=== PATIENT | male | born 1955 | race African-American/Black ===

== ENCOUNTER 2016-04-26 16:00 | Emergency (ER) | payer SELFPAY ==
[~2016-04-26] VITALS: Wt 75.0 kg
[~2016-04-26 16:00] MED LIST: ENAL2.5T PO; FER325 PO; LEVO500T72 ORAL; METF500T PO; SAN30GM TOP
--- NOTE | 2016-04-26 16:25 | ERD ---
ER Documentation Chief Complaint Date/Time DATE: 04/26/16 TIME: 16:23 Chief Complaint picc line removal HPI This is a 6-year-old male who is here for PICC line removal as he has completed his intravenous antibiotic therapy for an infected right fifth toe. He has no other complaints no shortness of breath chest pain no redness or pus discharge at the PICC line insertion ROS All systems reviewed and are negative except as per history of present illness. Medications Home Meds Active Scripts Collagenase* (Santyl*) 30 Gm Oint..gm., 1 APPLIC TOP DAILY for 14 Days Prov:MERNA RIOS NP 03/12/16 Ferrous Sulfate* (Ferrous Sulfate*) 325 Mg Tabec, 325 MG PO BID for 30 Days, TAB Prov:MERNA RIOS NP 03/12/16 Enalapril Maleate* (Enalapril Maleate*) 2.5 Mg Tablet, 2.5 MG PO DAILY for 30 Days, TAB Prov:MERNA RIOS NP 03/12/16 Metformin Hcl (Glucophage) 500 Mg Tablet, 1000 MG PO BID WITH MEALS for 30 Days , TAB Prov:MERNA RIOS NP 03/12/16 Levofloxacin* (Levaquin*) 500 Mg Tablet, 500 MG ORAL DAILY@06 for 48 Days, TAB Prov:MERNA RIOS NP 03/12/16 Allergies Allergies: Coded Allergies: No Known Allergy (Unverified , 03/06/16) PMhx/Soc History of Surgery: No Anesthesia Reaction: No (unknown ) Hx Neurological Disorder: Yes Hx Respiratory Disorders: No Hx Cardiac Disorders: Yes (htn) Hx Psychiatric Problems: Yes (anxiety) Hx Miscellaneous Medical Probl: No Hx Alcohol Use: Yes (beer, 03/05, 3 beers) Hx Substance Use: Yes (beer, 03/05) Hx Tobacco Use: Yes FmHx Family History: No coronary disease Physical Exam Vitals Vital Signs Date Time Temp Pulse Resp B/P Pulse Ox O2 Delivery O2 Flow Rate FiO2 04/26/16 16:02 97.9 79 20 182/86 98 Physical Exam Const: Well-developed, well-nourished Head: Atraumatic, normocephalic Eyes: Normal Conjunctiva, PERRLA, EOMI, normal sclera, no nystagmus ENT: Normal External Ears, Nose and Mouth, moist mucus membranes. Neck: Full range of motion. No meningismus, no lymphadenopathy. Resp: Clear to auscultation bilaterally, no wheezing, rhonchi, rales Cardio: Regular rate and rhythm, no murmurs, S1 S2 present Abd: Soft, non tender x 4, non distended. Normal bowel sounds, no guarding or rebound, no pulsitile abdominal masses or bruits Skin: No petechiae or rashes, no ecchymosis , no maculopapular rash Back: No midline or flank tenderness Ext: No cyanosis, or edema, FROM x 4, normal inspection, neurovascularly intact x 4, there is a left upper extremity PICC line intact no signs of erythema or cellulitis or infection Neur: Awake and alert, STR 5/5 x 4, sensation intact x 4, no focal findings, cerebellum intact Psych: Normal Mood and Affect Procedures/MDM Left upper extremity PICC line removed by me. PICC line removed without difficulty catheter tip is intact Departure Diagnosis: Primary Impression: PIC line (peripherally inserted central catheter) removal Condition: Stable Patient Instructions: Picc Line Care GIBRAN NUÑEZ DO Apr 26, 2016 16:25
== END 2016-04-26 16:49 | disposition home or self-care (01) ==
LOC: E/R 16:00
DX: Z45.2 Encounter for adjustment and management of vascular access device (principal); I10 Essential (primary) hypertension; E11.9 Type 2 diabetes mellitus without complications; Z79.84 Long term (current) use of oral hypoglycemic drugs; Z87.891 Personal history of nicotine dependence
CPT/HCPCS: 99282

== ENCOUNTER 2016-10-08 10:14 | Emergency (ER) | payer MEDICAID ==
[~2016-10-08] VITALS: Ht 172.7 cm; Wt 70.0 kg
[2016-10-08 10:18] VITALS: Ht 172.7 cm; Wt 70.0 kg
[2016-10-08] MEDS ORDERED: SOD CHLORIDE 0.9% 1,000 ML IV STA (10:26)
[2016-10-08] MEDS ORDERED: ONDANSETRON 4 MG INJ IV STA (10:26)
[2016-10-08 10:50] LABS: MODE ROOM AIR; MetHgb Venous 0.2 %; Sample Type Blood venous; Venous COHb 0.5 %; Venous Fraction OxyHgb 88.1 %; Venous Total Hemglobin 14.4 g/dl
[2016-10-08 11:00] LABS: ADD SCAN DIFF NO
[2016-10-08 11:08] LABS: ABNORMAL IP MESSAGE 1; BASOPHILS % 0.1 % (0.0-2.0); EOSINOPHILS # 0.1 10^3/ul (0.0-0.5); EOSINOPHILS % 1.2 % (0.0-7.0); HEMATOCRIT 39.3 % (42.0-52.0); LYMPHOCYTES # 0.4 10^3/ul (0.8-2.9); LYMPHOCYTES % 3.4 % (15.0-51.0); MEAN CORPUSCULAR HEMOGLOBIN 30.9 pg (29.0-33.0); MEAN CORPUSCULAR HGB CONC 33.1 g/dl (32.0-37.0); MEAN CORPUSCULAR VOLUME 93.3 fl (82.0-101.0); MEAN PLATELET VOLUME 10.7 fl (7.4-10.4); MONOCYTE # 0.4 10^3/ul (0.3-0.9); MONOCYTES % 3.4 % (0.0-11.0); NEUTROPHIL # 9.8 10^3/ul (1.6-7.5); NEUTROPHILS % 91.5 % (39.0-77.0); PLATELET COUNT 223 10^3/UL (140-415); RED BLOOD COUNT 4.21 10^6/ul (4.70-6.10); RED CELL DISTRIBUTION WIDTH 13.2 % (11.5-14.5); WHITE BLOOD COUNT 10.7 10^3/ul (4.8-10.8)
[2016-10-08 11:26] LABS: CALCIUM 8.9 mg/dl (8.4-10.2); CREATININE 0.75 mg/dl (0.61-1.24); POTASSIUM 3.5 mmol/L (3.5-5.1)
[2016-10-08 11:28] LABS: ADD UMIC YES; UR ASCORBIC ACID NEGATIVE (NEGATIVE); UR BACTERIA FEW /HPF (NONE SEEN); UR BILIRUBIN (Dip) NEGATIVE (NEGATIVE); UR BLOOD (Dip) 1+ mg/dL (NEGATIVE); UR CLARITY CLEAR (CLEAR); UR COLOR YELLOW (YELLOW); UR GLUCOSE (Dip) NEGATIVE (NEGATIVE); UR KETONES (Dip) TRACE mg/dL (NEGATIVE); UR LEUKOCYTE ESTERASE (Dip) NEGATIVE Leu/ul (NEGATIVE); UR MUCUS FEW /HPF (NONE SEEN); UR NITRITE (Dip) NEGATIVE (NEGATIVE); UR RBC 0 /HPF (0-5); UR SPECIFIC GRAVITY (Dip) 1.026 (1.003-1.030); UR TOTAL PROTEIN (Dip) 1+ mg/dl (NEGATIVE); UR UROBILINOGEN (Dip) NEGATIVE (NEGATIVE)
[2016-10-08] MEDS ORDERED: MTF1000T PO (11:35)
[2016-10-08 11:39] VITALS: BP 173/100; PULSE 75; RESP 16
--- NOTE | 2016-10-08 11:41 | ERD ---
ER Documentation Chief Complaint Date/Time DATE: 10/08/16 TIME: 11:38 Chief Complaint Complains of increasing blood sugar levels HPI 61-year-old male [id number] diabetic who states that he has been trying to space out his metformin because he is running out of medication. He notes that his blood sugars have been in the 200s. He does describe some polyuria but no polydipsia or polyphagia. One episode of mild nausea but no vomiting, 1 episode of loose stools. No chest pain or shortness of breath or fevers or chills. No abdominal pain. ROS All systems reviewed and are negative except as per history of present illness. Medications Home Meds Active Scripts Metformin* (Glucophage*) 1,000 Mg Tablet, 1000 MG PO BID for 30 Days, #60 TAB Prov:ERICK COONEY MD 10/08/16 Metformin Hcl (Glucophage) 500 Mg Tablet, 1000 MG PO BID WITH MEALS for 30 Days , TAB Prov:MERNA RIOS NP 03/12/16 Discontinued Scripts Collagenase* (Santyl*) 30 Gm Oint..gm., 1 APPLIC TOP DAILY for 14 Days Prov:MERNA RIOS NP 03/12/16 Ferrous Sulfate* (Ferrous Sulfate*) 325 Mg Tabec, 325 MG PO BID for 30 Days, TAB Prov:MERNA RIOS NP 03/12/16 Enalapril Maleate* (Enalapril Maleate*) 2.5 Mg Tablet, 2.5 MG PO DAILY for 30 Days, TAB Prov:MERNA RIOS NP 03/12/16 Levofloxacin* (Levaquin*) 500 Mg Tablet, 500 MG ORAL DAILY@06 for 48 Days, TAB Prov:MERNA RIOS NP 03/12/16 Allergies Allergies: Coded Allergies: No Known Allergy (Unverified , 10/08/16) PMhx/Soc History of Surgery: No Anesthesia Reaction: No (unknown ) Hx Neurological Disorder: Yes Hx Respiratory Disorders: No Hx Cardiac Disorders: Yes (htn) Hx Psychiatric Problems: Yes (anxiety) Hx Miscellaneous Medical Probl: Yes (DM, DKA) Hx Alcohol Use: No Hx Substance Use: No Hx Tobacco Use: No Smoking Status: Never smoker FmHx Family History: diabetes Physical Exam Vitals Vital Signs Date Time Temp Pulse Resp B/P Pulse Ox O2 Delivery O2 Flow Rate FiO2 10/08/16 10:18 98.0 77 20 172/85 98 Physical Exam General: Well developed, well nourished, no acute distress Head: Normocephalic, atraumatic. Eyes: Pupils equally reactive, EOM intact ENT: Moist mucous membranes Neck: Supple, no lymphadenopathy Respiratory: Lungs clear bilaterally, no distress Cardiovascular: RRR, no murmurs, rubs, or gallops Abdominal: Soft, non-tender, non-distended, no peritoneal signs : Deferred MSK: No edema, no unilateral swelling, 5/5 strength Neurologic: Alert and oriented, moving all extremities, normal speech, no focal weakness, no cerebellar signs Skin: No rash Psych: Normal mood Result Diagram: 10/08/16 1048 10/08/16 1048 Results 24 hrs Laboratory Tests Test 10/08/16 10:26 10/08/16 10:35 10/08/16 10:48 10/08/16 11:06 Blood Gas Specimen Source Blood venous Arterial Blood Date Drawn 10/08/2016 10:45:38 AM Arterial Blood Gas Puncture Site OTHER [place] Test N/A Venous Blood pH 7.401 Venous Blood pCO2 (Temp Corrected) 37.3mmHG Venous Blood pO2 (Temp Corrected) 57.5mmHG Venous Blood HCO3 22.6mmol/L Venous Blood Oxygen Saturation 88.7mmHG Venous Blood Base Excess -1.7mmol/L Venous Blood Total Hemoglobin 14.4g/dl Venous Blood Oxyhemoglobin 88.1% Venous Blood Methemoglobin 0.2% Blood Gas A-a O2 Differential 47.6mmHg Carboxyhemoglobin 0.5% Blood Gas Temperature 37.0C Blood Gas Modality ROOM AIR FiO2 21.0% Blood Gas Notified Whom MDA Blood Gas Notified Time 10/08/2016 10:50:05 AM Bedside Glucose 145mg/dL White Blood Count 10.710^3/ul Red Blood Count 4.2110^6/ul Hemoglobin 13.0g/dl Hematocrit 39.3% Mean Corpuscular Volume 93.3fl Mean Corpuscular Hemoglobin 30.9pg Mean Corpuscular Hemoglobin Concent 33.1g/dl Red Cell Distribution Width 13.2% Platelet Count 78996^3/UL Mean Platelet Volume 10.7fl Neutrophils % 91.5% Lymphocytes % 3.4% Monocytes % 3.4% Eosinophils % 1.2% Basophils % 0.1% Nucleated Red Blood Cells % 0.0/100WBC Neutrophils # 9.810^3/ul Lymphocytes # 0.410^3/ul Monocytes # 0.410^3/ul Eosinophils # 0.110^3/ul Basophils # 0.010^3/ul Nucleated Red Blood Cells # 0.010^3/ul Sodium Level 138mmol/L Potassium Level 3.5mmol/L Chloride Level 107mmol/L Carbon Dioxide Level 23mmol/L Anion Gap 12 Blood Urea Nitrogen 17mg/dl Creatinine 0.75mg/dl Glucose Level 149mg/dl Calcium Level 8.9mg/dl Urine Color YELLOW Urine Clarity CLEAR Urine pH 5.0 Urine Specific [place] 1.026 Urine Ketones TRACEmg/dL Urine Nitrite NEGATIVEmg/dL Urine Bilirubin NEGATIVEmg/dL Urine Urobilinogen NEGATIVEmg/dL Urine Leukocyte Esterase NEGATIVELeu/ul Urine Microscopic RBC 0/HPF Urine Microscopic WBC 0/HPF Urine Bacteria FEW/HPF Urine Mucus FEW/HPF Urine Hemoglobin 1+mg/dL Urine Glucose NEGATIVEmg/dL Urine Total Protein 1+mg/dl Current Medications Medications (Trade) Dose Ordered Sig/Aydee Route PRN Reason Start Time Stop Time Status Last Admin Dose Admin Sodium Chloride (NS) 1,000 ml @ 1,000 mls/hr Q1H STAT IV 10/08/16 10:26 10/08/16 11:25 DC 10/08/16 11:04 Ondansetron HCl (Zofran Inj) 4 mg ONCE STAT IV 10/08/16 10:26 10/08/16 10:30 DC 10/08/16 11:04 Procedures/MDM LAB INTERPRETATION: Venous blood gas without acidosis, no significant hyperglycemia no evidence of diabetic ketoacidosis, normal bicarb MEDICAL DECISION MAKING: The patient presents with elevated blood sugars likely secondary to medication noncompliance. The patient needs to follow-up with primary care physician to have regular refills of his medication. The patient does also have some mild GI process that could be related to a viral illness. He has a benign exam without evidence of acute intra-abdominal process. ER COURSE: Laboratory testing is reassuring without evidence of significant hyperglycemia, no evidence of diabetic ketoacidosis. The patient has a normal bicarb. Only trace ketones possibly secondary to mild dehydration. IV fluids given. No indication for insulin. A refill of the patient's metformin 1000 twice daily will be given to the patient. Outpatient management is appropriate. Patient can be safely discharged. I kept the patient and/or family informed of laboratory and diagnostic imaging results throughout the emergency room course. DISPOSITION PLAN: We discussed follow up with the patient's primary care doctor within 24 to 48 hours as needed. We also discussed return to the emergency room for worsening symptoms or worsening condition. Outpatient referral: [None required] Discharge Medications: Metformin 1000 twice daily Departure Diagnosis: Primary Impression: Hyperglycemia Condition: Stable Patient Instructions: Hyperglycemia (High Blood Sugar) Referrals: COMM[facility]ITY CLIN[facility] YOU HAVE RECEIVED A MEDICAL SCREENING EXAM AND THE RESULTS INDICATE THAT YOU DO NOT HAVE A CONDITION THAT REQUIRES URGENT TREATMENT IN THE EMERGENCY DEPARTMENT. FURTHER EVALUATION AND TREATMENT OF YOUR CONDITION CAN WAIT UNTIL YOU ARE SEEN IN YOUR DOCTORS OFFICE WITHIN THE NEXT 1-2 DAYS. IT IS YOUR RESPONSIBILITY TO MAKE AN APPOINTMENT FOR FOLOW-UP CARE. IF YOU HAVE A PRIMARY DOCTOR --you should call your primary doctor and schedule an appointment IF YOU DO NOT HAVE A PRIMARY DOCTOR YOU CAN CALL OUR PHYSICIAN REFERRAL HOTLINE AT IF YOU CAN NOT AFFORD TO SEE A PHYSICIAN YOU CAN CHOSE FROM THE FOLLOWING [facility] [address] [facility] [address] [address] [facility]. [facility] [address] [facility] [facility] [address] [facility] [facility] [address] [facility] [address] [facility]. [facility]. [address] [facility]. [facility] YOU HAVE RECEIVED A MEDICAL SCREENING EXAM AND THE RESULTS INDICATE THAT YOU DO NOT HAVE A CONDITION THAT REQUIRES URGENT TREATMENT IN THE EMERGENCY DEPARTMENT. FURTHER EVALUATION AND TREATMENT OF YOUR CONDITION CAN WAIT UNTIL YOU ARE SEEN IN YOUR DOCTORS OFFICE WITHIN THE NEXT 1-2 DAYS. IT IS YOUR RESPONSIBILITY TO MAKE AN APPOINTMENT FOR FOLOW-UP CARE. IF YOU HAVE A PRIMARY DOCTOR --you should call your primary doctor and schedule and appointment IF YOU DO NOT HAVE A PRIMARY DOCTOR YOU CAN CALL OUR PHYSICIAN REFERRAL HOTLINE AT . IF YOU CAN NOT AFFORD TO SEE A PHYSICIAN YOU CAN CHOSE FROM THE FOLLOWING [facility] INSTITUTIONS: [facility] [address] [place] [address] [facility] [address] [place] [address] [facility] [address] [place] [address] Additional Instructions: Call your primary care doctor TOMORROW for an appointment during the next 1 WEEK.Tell the ladies' hat trimmer that you were referred from this facility.See the doctor sooner or return here if your condition worsens before your appointment time. ERICK COONEY MD Oct 08, 2016 11:41
== END 2016-10-08 11:47 | disposition home or self-care (01) ==
LOC: E/R 10:14
DX: E11.65 Type 2 diabetes mellitus with hyperglycemia (principal); I10 Essential (primary) hypertension; Z79.84 Long term (current) use of oral hypoglycemic drugs
CPT/HCPCS: 36415; 80048; 81001; 82803; 82962; 85025; J2405; J7030; 96374

== ENCOUNTER 2017-07-11 03:56 | Emergency (ER) | END 2017-07-11 08:23 | disposition home or self-care (01) ==

== ENCOUNTER 2018-04-10 15:22 | Emergency (ER) | payer OTHER ==
[~2018-04-10] VITALS: Ht 182.9 cm; Wt 81.8 kg
[~2018-04-10 15:22] MED LIST changes: -ENAL2.5T PO; -FER325 PO; +IBUP-1542 PO; -LEVO500T72 ORAL; +MTF1000T PO; -SAN30GM TOP; +WALK1EAC23 MC
[2018-04-10 15:25] VITALS: Ht 182.9 cm; Wt 81.8 kg
[2018-04-10] MEDS ORDERED: IBUPROFEN 800 MG TAB PO ONE (16:00)
[2018-04-10] MEDS ORDERED: BENZONATATE 100 MG CAP PO ONE (16:00)
[2018-04-10] MEDS ORDERED: IBUP-1542 PO (16:27)
[2018-04-10] MEDS ORDERED: BENZ-6 PO (16:27)
[2018-04-10 17:00] VITALS: BP 142/72; PULSE 77; RESP 18
--- NOTE | 2018-04-10 19:37 | ERD ---
ER Documentation Chief Complaint Chief Complaint COUGH AND VOMITING HPI Patient is a 62-year-old male with hypertension and diabetes who presents with cough. The patient was brought in by ambulance. The patient is homeless and has not been caring for himself. He came [place] [facility]. He is speaking in full sentences. He said that he has high blood pressure, cough, and sore throat. He feels diffuse weakness. He is also sneezing. He said that there are many people at the jail with the same. He has had no treatment as of yet. Upon review of old medical records this is the patient's eighth visit to the ER since 2016. Review of the emergency department information exchange system shows visits to 3 separate emergency departments. He goes to [facility] for his primary care. ROS All systems reviewed and are negative except as per history of present illness. Medications Home Meds Active Scripts Benzonatate* (Tessalon Perle*) 100 Mg Capsule, 100 MG PO Q8H PRN for COUGH, #30 CAP Prov:SOY LUNDBERG MD 04/10/18 Ibuprofen* (Motrin*) 600 Mg Tab, 600 MG PO Q6H PRN for PAIN AND OR ELEVATED TEMP, #30 TAB Prov:SOY LUNDBERG MD 04/10/18 Front Wheel Walker* (Front Wheel Walker*) 1 Each Dme, 1 EACH [facility] DIRECTED, #1 DME 0 Refills Prov:HEATHER ALARCON PA-C 07/11/17 Ibuprofen* (Motrin*) 600 Mg Tab, 600 MG PO Q6, #30 TAB Prov:BRANDY HENDERSON PA-C 07/11/17 Metformin* (Glucophage*) 1,000 Mg Tablet, 1000 MG PO BID for 30 Days, #60 TAB Prov:ERICK COONEY MD 10/08/16 Metformin Hcl (Glucophage) 500 Mg Tablet, 1000 MG PO BID WITH MEALS for 30 Days, TAB Prov:MERNA RIOS NP 03/12/16 Allergies Allergies: Coded Allergies: No Known Allergy (Unverified , 10/08/16) PMhx/Soc History of Surgery: No Anesthesia Reaction: No (unknown ) Hx Neurological Disorder: Yes Hx Respiratory Disorders: No Hx Cardiac Disorders: Yes (htn) Hx Psychiatric Problems: Yes (anxiety) Hx Miscellaneous Medical Probl: Yes (DM2, HTN ) Hx Alcohol Use: No Hx Substance Use: No Hx Tobacco Use: Yes Smoking Status: Current every day smoker FmHx Family History: No diabetes Physical Exam Vitals Vital Signs Date Temp Pulse Resp B/P (MAP) Pulse Ox O2 O2 Flow FiO2 Time Delivery Rate 04/10/18 98.0 77 18 142/72 96 Room Air 17:00 (95) 04/10/18 97.3 91 20 140/75 96 15:25 (96) Physical Exam Const: No acute distress Head: Atraumatic Eyes: Normal Conjunctiva ENT: Normal External Ears, Nose and Mouth. Neck: Full range of motion. No meningismus. Resp: Clear to auscultation bilaterally Cardio: Regular rate and rhythm, no murmurs Abd: Soft, non tender, non distended. Normal bowel sounds Skin: No petechiae or rashes Back: No midline or flank tenderness Ext: No cyanosis, or edema Neur: Awake and alert Psych: Normal Mood and Affect Results 24 hrs Current Medications Medications Dose Sig/Aydee Start Time Status Last (Trade) Ordered Route PRN Stop Time Admin Dose Reason Admin Benzonatate 200 mg ONCE ONCE 04/10/18 DC 04/10/18 (Tessalon) PO 16:00 16:47 04/10/18 16:01 Ibuprofen 800 mg ONCE ONCE 04/10/18 DC 04/10/18 (Motrin) PO 16:00 16:17 04/10/18 16:01 Procedures/MDM Smoking Cessation Therapy: Pt. was lectured for greater than 3 minutes on the health risks of continued smoking and the benefits of cessation. Patient is a 62-year-old male with hypertension and diabetes who presents with cough. The patient is in no distress at this time. Flu swab was negative. The patient will be discharged with Tessalon and ibuprofen. The patient can return for any worsening symptoms. I doubt pneumonia, pneumothorax, or pulmonary embolism. Departure Diagnosis: Primary Impression: URI (upper respiratory infection) URI type: unspecified URI Qualified Codes: J06.9 - Acute upper respiratory infection, unspecified Additional Impression: Cough Condition: Fair Patient Instructions: Uri, Viral, No Abx (Adult) Referrals: Your doctor Additional Instructions: Call your primary care doctor TOMORROW for an appointment during the next 1-2 days.See the doctor sooner or return here if your condition worsens before your appointment time. SOY LUNDBERG MD Apr 10, 2018 19:37
== END 2018-04-10 17:00 | disposition home or self-care (01) ==
LOC: E/R 15:22
DX: J06.9 Acute upper respiratory infection, unspecified (principal); I10 Essential (primary) hypertension; E11.9 Type 2 diabetes mellitus without complications; F17.210 Nicotine dependence, cigarettes, uncomplicated; Z79.84 Long term (current) use of oral hypoglycemic drugs
CPT/HCPCS: 87400; Z7502; Z7610; 99283

== ENCOUNTER 2018-06-09 12:25 | Emergency (ER) | payer OTHER ==
[~2018-06-09] VITALS: Ht 167.6 cm; Wt 85.0 kg
[~2018-06-09 12:25] MED LIST changes: +BENZ-6 PO
[2018-06-09 12:40] VITALS: Ht 167.6 cm; Wt 85.0 kg
[2018-06-09] MEDS ORDERED: SOD CHLORIDE 0.9% 1,000 ML IV STA (13:03)
[2018-06-09] MEDS ORDERED: LACTATED RINGER'S 1,000 ML IV STA (13:03)
[2018-06-09] MEDS ORDERED: KETOROLAC 30 MG INJ IV STA (13:25)
[2018-06-09] MEDS ORDERED: GABA300C16 PO (13:59)
[2018-06-09] MEDS ORDERED: INSULIN ASPART [NOVOLOG] 3 ML PEN SC ONE (15:00)
[2018-06-09] MEDS ORDERED: IBUP-1542 PO (15:13)
--- NOTE | 2018-06-09 15:15 | ERD ---
ER Documentation Chief Complaint Chief Complaint Compllains of generalized pain more increased in the hands Hx of Neuropathy HPI 63-year-old male with a history of diabetes and diabetic neuropathy presenting with complaints of burning pain in his feet and his hands that have been worsening. He also complains of urinating a lot but denies any dysuria. He is taking his metformin as prescribed, but he feels like it is not helping. He denies any chest pain, shortness of breath, dizziness, abdominal pain, chest pain, fever or chills. He does have a primary care doctor but cannot remember her name. ROS All systems reviewed and are negative except as per history of present illness. Medications Home Meds Active Scripts Ibuprofen* (Motrin*) 600 Mg Tab, 600 MG PO Q6H PRN for PAIN AND OR ELEVATED TEMP, #30 TAB Prov:GEORGES PECK MD 06/09/18 Metformin Hcl (Glucophage) 500 Mg Tablet, 1000 MG PO BID WITH MEALS for 30 Days, TAB Prov:MERNA RIOS NP 03/12/16 Reported Medications Gabapentin* (Gabapentin*) 300 Mg Capsule, 300 MG PO BID, #60 CAP 06/09/18 Discontinued Scripts Benzonatate* (Tessalon Perle*) 100 Mg Capsule, 100 MG PO Q8H PRN for COUGH, #30 CAP Prov:SOY LUNDBERG MD 04/10/18 Ibuprofen* (Motrin*) 600 Mg Tab, 600 MG PO Q6H PRN for PAIN AND OR ELEVATED TEMP, #30 TAB Prov:SOY LUNDBERG MD 04/10/18 Front Wheel Walker* (Front Wheel Walker*) 1 Each Dme, 1 EACH MC DIRECTED, #1 DME 0 Refills Prov:HEATHER ALARCON PA-C 07/11/17 Ibuprofen* (Motrin*) 600 Mg Tab, 600 MG PO Q6, #30 TAB Prov:BRANDY HENDERSON PA-C 07/11/17 Metformin* (Glucophage*) 1,000 Mg Tablet, 1000 MG PO BID for 30 Days, #60 TAB Prov:ERICK COONEY MD 10/08/16 Allergies Allergies: Coded Allergies: No Known Allergy (Unverified , 06/09/18) PMhx/Soc History of Surgery: No Anesthesia Reaction: No Hx Neurological Disorder: Yes (neuropathy) Hx Respiratory Disorders: No Hx Cardiac Disorders: Yes (htn) Hx Psychiatric Problems: Yes (anxiety) Hx Miscellaneous Medical Probl: Yes (DM2, HTN ) Hx Alcohol Use: No Hx Substance Use: No Hx Tobacco Use: Yes Smoking Status: Current every day smoker FmHx Family History: No coronary disease Physical Exam Vitals Vital Signs Date Temp Pulse Resp B/P (MAP) Pulse Ox O2 O2 Flow FiO2 Time Delivery Rate 06/09/18 98.1 78 20 147/82 100 Room Air 15:50 (103) 06/09/18 98.1 87 22 155/91 100 Room Air 13:17 (112) 06/09/18 98.1 87 20 151/85 97 12:40 (107) Physical Exam Const: No acute distress Head: Atraumatic Eyes: Normal Conjunctiva ENT: Normal External Ears, Nose and Mouth. Poor dentition. Mucous membranes moist Neck: Full range of motion. No meningismus. Resp: Clear to auscultation bilaterally Cardio: Regular rate and rhythm, no murmurs. 2+ pulses in all 4 extremities distally Abd: Soft, non tender, non distended. Normal bowel sounds Skin: No petechiae or rashes Back: No midline or flank tenderness Ext: No cyanosis, or edema. No wounds on extremities. No evidence of cellulitis. Neur: Awake and alert Psych: Normal Mood and Affect Result Diagram: 06/09/18 1315 06/09/18 1315 Results 24 hrs Laboratory Tests Test 06/09/18 13:15 06/09/18 13:24 06/09/18 15:10 06/09/18 15:26 White Blood Count 6.6 10^3/ul Red Blood Count 4.55 10^6/ul Hemoglobin 13.6 g/dl Hematocrit 42.1 % Mean Corpuscular 92.5 fl Volume Mean Corpuscular 29.9 pg Hemoglobin Mean Corpuscular 32.3 g/dl Hemoglobin Concen t Red Cell 11.6 % Distribution Width Platelet Count 282 10^3/UL Mean Platelet 9.7 fl Volume Immature 0.300 % Granulocytes % Neutrophils % 70.9 % Lymphocytes % 21.6 % Monocytes % 6.4 % Eosinophils % 0.5 % Basophils % 0.3 % Nucleated Red 0.0 /100WBC Blood Cells % Immature 0.020 10^3/ul Granulocytes # Neutrophils # 4.7 10^3/ul Lymphocytes # 1.4 10^3/ul Monocytes # 0.4 10^3/ul Eosinophils # 0.0 10^3/ul Basophils # 0.0 10^3/ul Nucleated Red 0.0 10^3/ul Blood Cells # Sodium Level 136 mmol/L Potassium Level 5.0 mmol/L Chloride Level 96 mmol/L Carbon Dioxide 31 mmol/L Level Anion Gap 9 Blood Urea 20 mg/dl Nitrogen Creatinine 0.78 mg/dl Est Glomerular > 60 mL/min Filtrat Rate mL/min Glucose Level 397 mg/dl Calcium Level 10.1 mg/dl Total Bilirubin 0.1 mg/dl Direct Bilirubin 0.00 mg/dl Indirect 0.1 mg/dl Bilirubin Aspartate Amino 33 IU/L Transf (AST/SGOT) Alanine 26 IU/L Aminotransferase (ALT/SGPT) Alkaline 181 IU/L Phosphatase Troponin I < 0.012 ng/ml Total Protein 8.0 g/dl Albumin 4.4 g/dl Globulin 3.60 g/dl Albumin/Globulin 1.22 Ratio Bedside Glucose 386 mg/dL 322 mg/dL Urine Color STRAW Urine Clarity CLEAR Urine pH 6.0 Urine Specific 1.027 [place] Urine Ketones NEGATIVE mg/dL Urine Nitrite NEGATIVE mg/dL Urine Bilirubin NEGATIVE mg/dL Urine NEGATIVE mg/dL Urobilinogen Urine Leukocyte NEGATIVE Wilfrid/ul Esterase Urine Hemoglobin NEGATIVE mg/dL Urine Glucose 3+ mg/dL Urine Total NEGATIVE mg/dl Protein Test 06/09/18 15:42 Bedside Glucose 275 mg/dL Current Medications Medications Dose Sig/Aydee Start Time Status Last (Trade) Ordered Route PRN Stop Time Admin Dose Reason Admin Sodium 1,000 ml @ Q1H STAT 06/09/18 DC 06/09/18 Chloride 1,000 mls/hr IV 13:03 13:28 06/09/18 14:02 Lactated 1,000 ml @ Q1H STAT 06/09/18 DC 06/09/18 Ringer's 1,000 mls/hr IV 13:03 13:28 06/09/18 14:02 Ketorolac 30 mg ONCE STAT 06/09/18 DC 06/09/18 Tromethamine IV 13:25 13:33 (Toradol) 06/09/18 13:26 Insulin 5 unit ONCE ONCE 06/09/18 DC 06/09/18 Aspart SC 15:00 15:26 (Novolog 06/09/18 15:01 Insulin Pen) Procedures/MDM EMERGENT LABS AND DIAGNOSTIC STUDIES: Lab Results above were reviewed and interpreted by me. CBC: no anemia or evidence of infection CMP: Hyperglycemia. No evidence of electrolyte abnormality, acidosis, renal failure, hypoglycemia Troponin within normal limits, not indicative of cardiac ischemia UA: no evidence of ketosis or infection 12-lead EKG was interpreted by More Peck MD: Normal Sinus Rhythm Normal axis Normal intervals Anterolateral T wave abnormalities Abnormal EKG, no STEMI. Radiology Results as interpreted by Radiology below were reviewed by Lolis mendoza MD: Chest x-ray shows no acute abnormalities Initial Nursing notes reviewed. Previous Medical Records requested via the Electronic Health Record. EMERGENCY DEPARTMENT COURSE / MEDICAL DECISION MAKING: Patient is presenting with worsening generalized neuropathy and hyperglycemia. He was treated with Toradol with improvement of his symptoms. He is hemodynamically stable with no complaints of shortness of breath or chest pain. Although his EKG was abnormal and I have no previous EKG to compare to, his troponin is within normal limits and he has no symptoms of ACS. I do not think any further workup is necessary at this time. With regard to his hyperglycemia, IV fluids were given as well as subcutaneous insulin. I recommended follow-up with his primary care doctor to adjust his diabetes medications as well as his gabapentin for his polyneuropathy. His pain has improved after Toradol was given. Patient remained stable in the ER. He is stable for discharge at this time with continued outpatient follow-up. All questions were answered. Patient's blood pressure was elevated (>120/80) but appears stable without evidence of hypertensive emergency or urgency. The patient was counseled about the risks of hypertension and urged to pursue outpatient monitoring and therapy within a week with their primary care physician. Departure Diagnosis: Primary Impression: Diabetes, polyneuropathy Diabetes mellitus type: type 2 Qualified Codes: E11.42 - Type 2 diabetes mellitus with diabetic polyneuropathy Additional Impression: Diabetes type 2, uncontrolled Glycemic state: with hyperglycemia Qualified Codes: E11.65 - Type 2 diabetes mellitus with hyperglycemia Condition: Stable Patient Instructions: Hyperglycemia (High Blood Sugar), Neuropathy, Peripheral Referrals: COMM[facility]ITY CLINICS YOU HAVE RECEIVED A MEDICAL SCREENING EXAM AND THE RESULTS INDICATE THAT YOU DO NOT HAVE A CONDITION THAT REQUIRES URGENT TREATMENT IN THE EMERGENCY DEPARTMENT. FURTHER EVALUATION AND TREATMENT OF YOUR CONDITION CAN WAIT UNTIL YOU ARE SEEN IN YOUR DOCTORS OFFICE WITHIN THE NEXT 1-2 DAYS. IT IS YOUR RESPONSIBILITY TO MAKE AN APPOINTMENT FOR [facility]. IF YOU HAVE A PRIMARY DOCTOR --you should call your primary doctor and schedule an appointment IF YOU DO NOT HAVE A PRIMARY DOCTOR YOU CAN CALL OUR PHYSICIAN REFERRAL HOTLINE AT IF YOU CAN NOT AFFORD TO SEE A PHYSICIAN YOU CAN CHOSE FROM THE FOLLOWING [facility] CL[facility] [address] [facility]. [facility] [address] [facility] [facility] [address] [facility] [facility] [address]. [facility] [address] [facility]. [facility]. [address] Additional Instructions: Make an appointment to see your doctor regarding your uncontrolled diabetes. Despite taking her medications, your blood sugar remains high. I would recommend you be started on an additional medication for your diabetes. Your gabapentin dose can also be increased to control your neuropathy symptoms. GEORGES PECK MD Jun 09, 2018 15:15
[2018-06-09 15:50] VITALS: BP 147/82; PULSE 78; RESP 20
== END 2018-06-09 15:53 | disposition home or self-care (01) ==
LOC: E/R 12:25
DX: E11.42 Type 2 diabetes mellitus with diabetic polyneuropathy (principal); I10 Essential (primary) hypertension; F17.210 Nicotine dependence, cigarettes, uncomplicated; E11.65 Type 2 diabetes mellitus with hyperglycemia; Z79.84 Long term (current) use of oral hypoglycemic drugs
CPT/HCPCS: 36415; 71045; 80053; 81003; 82962; 84484; 85025; 93005; 96372; 96374; J1815; J1885; J7030; J7120; Z7502; Z7610

== ENCOUNTER 2018-06-11 12:59 | Emergency (ER) | payer OTHER ==
[~2018-06-11] VITALS: Ht 170.2 cm; Wt 68.3 kg
[~2018-06-11 12:59] MED LIST changes: -BENZ-6 PO; +GABA300C16 PO; -MTF1000T PO; -WALK1EAC23 MC
[2018-06-11 13:25] VITALS: Ht 170.2 cm; Wt 68.3 kg
--- NOTE | 2018-06-11 16:09 | ERD ---
ER Documentation Chief Complaint Chief Complaint STATES HAS PAIN TO HANDS AND FEET (NERVE). NEEDS PAIN MEDICATIONS HPI 63-year-old male with a history of diabetes and diabetic neuropathy presenting with complaints of burning pain in his feet and his hands that have been worsening. He denies any chest pain, shortness of breath, dizziness, abdominal pain, chest pain, fever or chills. He does have a primary care doctor but cannot remember her name. ROS All systems reviewed and are negative except as per history of present illness. Medications Home Meds Active Scripts Hydrocodone/Acetaminophen ([place] 5-325 Tablet) 1 Each Tablet, 1 TAB PO QHS PRN for PAIN, #7 TAB Prov:CHANDRAKANT CHAPA MD 06/11/18 Ibuprofen* (Motrin*) 600 Mg Tab, 600 MG PO Q6H PRN for PAIN AND OR ELEVATED TEMP, #30 TAB Prov:GEORGES DOSHI MD 06/09/18 Metformin Hcl (Glucophage) 500 Mg Tablet, 1000 MG PO BID WITH MEALS for 30 Days, TAB Prov:MERNA RIOS NP 03/12/16 Reported Medications Gabapentin* (Gabapentin*) 300 Mg Capsule, 300 MG PO BID, #60 CAP 06/09/18 Discontinued Scripts Benzonatate* (Tessalon Perle*) 100 Mg Capsule, 100 MG PO Q8H PRN for COUGH, #30 CAP Prov:SOY LUNDBERG MD 04/10/18 Ibuprofen* (Motrin*) 600 Mg Tab, 600 MG PO Q6H PRN for PAIN AND OR ELEVATED TEMP, #30 TAB Prov:SOY LUNDBERG MD 04/10/18 Front Wheel Walker* (Front Wheel Walker*) 1 Each Dme, 1 EACH MC DIRECTED, #1 DME 0 Refills Prov:HEATHER ALARCON PA-C 07/11/17 Ibuprofen* (Motrin*) 600 Mg Tab, 600 MG PO Q6, #30 TAB Prov:BRANDY HENDERSON PA-C 07/11/17 Metformin* (Glucophage*) 1,000 Mg Tablet, 1000 MG PO BID for 30 Days, #60 TAB Prov:ERICK COONEY MD 10/08/16 Allergies Allergies: Coded Allergies: No Known Allergy (Unverified , 06/09/18) PMhx/Soc History of Surgery: No Anesthesia Reaction: No Hx Neurological Disorder: Yes (neuropathy) Hx Respiratory Disorders: No Hx Cardiac Disorders: Yes (htn) Hx Psychiatric Problems: Yes (anxiety) Hx Miscellaneous Medical Probl: Yes (DM2, HTN ) Hx Alcohol Use: No Hx Substance Use: No Hx Tobacco Use: Yes Smoking Status: Current every day smoker Physical Exam Vitals Vital Signs Date Temp Pulse Resp B/P (MAP) Pulse Ox O2 O2 Flow FiO2 Time Delivery Rate 06/11/18 98.0 73 20 188/90 100 Room Air 16:28 (122) 06/11/18 97.9 89 18 205/147 99 13:25 (166) Physical Exam Const: No acute distress Head: Atraumatic Eyes: Normal Conjunctiva ENT: Normal External Ears, Nose and Mouth. Neck: Full range of motion. No meningismus. Resp: Clear to auscultation bilaterally Cardio: Regular rate and rhythm, no murmurs Abd: Soft, non tender, non distended. Normal bowel sounds Skin: No petechiae or rashes Back: No midline or flank tenderness Ext: No cyanosis, or edema Neur: Awake and alert Psych: Normal Mood and Affect Procedures/MDM Vital signs stable; physical exam unremarkable. During the ED course the patient remained stable, no new complaints. I strongly recommend the use of nonpharmacologic treatment with self-management strategies, behavioral treatments, physical therapy as well as noncontrol pharmacotherapy like hydroxyzine. Follow up with the primary care provider in the next 48h has been recommended. Instructions explained and given directly by me to the patient with acknowledgment and demonstrated understanding. Disclaimer: Inadvertent spelling and grammatical errors are likely due to EHR/dictation software use and do not reflect on the overall quality of patient care. Also, please note that the electronic time recorded on this note does not necessarily reflect the actual time of the patient encounter. Departure Diagnosis: Primary Impression: Diabetes, polyneuropathy Condition: Stable Additional Instructions: Thank you very much for allowing us to participate in your care. Your health and safety is our top priority at [facility]. Call your primary care doctor TOMORROW for an appointment during the next 2-4 days and bring all the information and medications prescribed. Have prescriptions filled and follow precisely the directions on the label. If the symptoms get worse and your provider is unavailable, return to the Emergency Department immediately. CHANDRAKANT CHAPA MD Jun 11, 2018 16:09
[2018-06-11] MEDS ORDERED: HYDR-4011 PO (16:17)
[2018-06-11 16:28] VITALS: BP 188/90; PULSE 73; RESP 20
== END 2018-06-11 16:48 | disposition home or self-care (01) ==
LOC: FTE 12:59
DX: E11.42 Type 2 diabetes mellitus with diabetic polyneuropathy (principal); I10 Essential (primary) hypertension; F17.210 Nicotine dependence, cigarettes, uncomplicated; Z79.84 Long term (current) use of oral hypoglycemic drugs
CPT/HCPCS: 99283

== ENCOUNTER 2018-06-23 14:38 | Emergency (ER) | payer SELFPAY ==
[~2018-06-23] VITALS: Ht 180.3 cm; Wt 70.2 kg
[~2018-06-23 14:38] MED LIST changes: +HYDR-4011 PO
[2018-06-23 14:54] VITALS: BP 193/91; PULSE 94; RESP 19; Ht 180.3 cm; Wt 70.2 kg
[2018-06-24] MEDS ORDERED: SULF1TAB31 PO (14:26)
[2018-06-24] MEDS ORDERED: IBUP-1542 PO (14:26)
[2018-06-24] MEDS ORDERED: CEPH-443 PO (14:26)
== END 2018-06-23 19:06 | disposition left against medical advice (07) ==
LOC: E/R 14:38
DX: Z53.21 Procedure and treatment not carried out due to patient leaving prior to being seen by health care provider (principal)

== ENCOUNTER 2018-06-24 14:08 | Emergency (ER) | payer OTHER ==
[~2018-06-24] VITALS: Wt 72.0 kg
[2018-06-24 14:25] VITALS: BP 170/98; PULSE 89; RESP 16
[2018-06-24] MEDS ORDERED: IBUP-1542 PO (14:26)
[2018-06-24] MEDS ORDERED: CEPH-443 PO (14:26)
[2018-06-24] MEDS ORDERED: SULF1TAB31 PO (14:26)
--- NOTE | 2018-06-24 16:40 | ERD ---
ER Documentation Chief Complaint Chief Complaint R INDEX FINGER PAIN AND SWELLING FOR THE PAST 3 WKS, BP HIGH HPI Patient is a 62-year-old male with hypertension and diabetes who presents with right second finger pain. He said that 1 month ago he was cleaning out a backyard and felt like he might of injured his finger on something. He has had pain in that finger since. He has had no antibiotics. He is right-handed. He said that he has had fevers but there is no fever in the emergency department. Upon review of old medical records the patient has multiple visits to 3 separate emergency departments. He does not know the name of his primary doctor. ROS All systems reviewed and are negative except as per history of present illness. Medications Home Meds Active Scripts Sulfamethoxazole/Trimethoprim* (Bactrim Ds* Tablet) 1 Each Tablet, 1 TAB PO BID, #14 TAB Prov:SOY LUNDBERG MD 06/24/18 Cephalexin* (Keflex*) 500 Mg Capsule, 500 MG PO QID for 7 Days, CAP Prov:SOY LUNDBERG MD 06/24/18 Ibuprofen* (Motrin*) 600 Mg Tab, 600 MG PO Q6H PRN for PAIN AND OR ELEVATED TEMP, #30 TAB Prov:SOY LUNDBERG MD 06/24/18 Hydrocodone/Acetaminophen ([place] 5-325 Tablet) 1 Each Tablet, 1 TAB PO QHS PRN for PAIN, #7 TAB Prov:CHANDRAKANT CHAPA MD 06/11/18 Ibuprofen* (Motrin*) 600 Mg Tab, 600 MG PO Q6H PRN for PAIN AND OR ELEVATED TEMP, #30 TAB Prov:GEORGES DOSHI MD 06/09/18 Metformin Hcl (Glucophage) 500 Mg Tablet, 1000 MG PO BID WITH MEALS for 30 Days, TAB Prov:MERNA RIOS NP 03/12/16 Reported Medications Gabapentin* (Gabapentin*) 300 Mg Capsule, 300 MG PO BID, #60 CAP 06/09/18 Allergies Allergies: Coded Allergies: No Known Allergy (Unverified , 06/09/18) PMhx/Soc History of Surgery: No Anesthesia Reaction: No Hx Neurological Disorder: Yes (neuropathy) Hx Respiratory Disorders: No Hx Cardiac Disorders: Yes (htn) Hx Psychiatric Problems: Yes (anxiety) Hx Miscellaneous Medical Probl: Yes (DM2, HTN ) Hx Alcohol Use: No Hx Substance Use: No Hx Tobacco Use: Yes Smoking Status: Current every day smoker FmHx Family History: No diabetes Physical Exam Vitals Vital Signs Date Temp Pulse Resp B/P (MAP) Pulse Ox O2 O2 Flow FiO2 Time Delivery Rate 06/24/18 98.7 89 16 170/98 99 Room Air 14:25 (122) 06/24/18 98.7 96 18 180/109 97 14:10 (132) Physical Exam Const: No acute distress Head: Atraumatic Eyes: Normal Conjunctiva ENT: Normal External Ears, Nose and Mouth. Neck: Full range of motion. No meningismus. Resp: Clear to auscultation bilaterally Cardio: Regular rate and rhythm, no murmurs Abd: Soft, non tender, non distended. Normal bowel sounds Skin: No petechiae or rashes Back: No midline or flank tenderness Ext: Swelling to the distal right second finger without obvious fluctuance, no signs of flexor tenosynovitis, no paronychia Neur: Awake and alert Psych: Normal Mood and Affect Procedures/MDM Patient is a 62-year-old male who presents with right finger pain. I believe he likely has a cellulitis and I would treat him with Bactrim and Keflex for 1 week. He will need to follow-up with a hand surgeon as well and I have given him information for the [facility] hand clinic. The patient can return for any worsening symptoms. I do not believe requires further workup or admission to the hospital at this time. Departure Diagnosis: Primary Impression: HTN (hypertension) Hypertension type: essential hypertension Qualified Codes: I10 - Essential (primary) hypertension Additional Impression: Finger infection Condition: Fair Patient Instructions: Cellulitis, High Blood Pressure (Hypertension), Finger Contusion Referrals: [facility] Additional Instructions: SPECIALIST: YOU HAVE A MEDICAL CONDITION WHICH REQUIRES YOU TO SEE A SPECIALIST WITHIN THE NEXT 1-2 DAYS. PLEASE FOLLOW UP WITH YOUR PRIMARY PHYSICIAN FOR REFFERAL.IF YOU DO NOT HAVE A PRIMARY CARE PHYSICIAN AND/OR YOU CAN NOT AFFORD TO SEE A PHYSICIAN THE FOLLOWING RESOURCES HAVE BEEN SUPPLIED TO YOU. IT IS YOUR RESPONSIBILITY TO BE SEEN BY THE SPECIALIST SOY LUNDBERG MD Jun 24, 2018 16:40
== END 2018-06-24 14:30 | disposition home or self-care (01) ==
LOC: E/R 14:08
DX: I10 Essential (primary) hypertension (principal); L08.9 Local infection of the skin and subcutaneous tissue, unspecified; E11.9 Type 2 diabetes mellitus without complications; F17.210 Nicotine dependence, cigarettes, uncomplicated; Z79.84 Long term (current) use of oral hypoglycemic drugs
CPT/HCPCS: 99283